=== PATIENT | male | born 1990 | race Caucasian/White ===

== ENCOUNTER 2019-10-01 16:30 | Emergency (ER) | payer OTHER, SELFPAY ==
[~2019-10-01] VITALS: Ht 167.6 cm; Wt 79.8 kg
[2019-10-01 16:35] VITALS: BP_SYST 152
--- NOTE | 2019-10-01 16:40 | NUR ---
Pt on tent at this time
--- NOTE | 2019-10-01 17:00 | NUR ---
Pt brought by mother, A&Ox4, pt presents to ER with R earache and dizziness, pt requesting a covid test, no cough, respirations even and unlabored, cap refill <3.
--- NOTE | 2019-10-01 17:30 | NUR ---
Dr Duarte L assessing patient in the tent.
[2019-10-01 18:05] VITALS: BP_SYST 152
--- NOTE | 2019-10-01 18:05 | NUR ---
Patient given written and verbal discharge instructions and verbalizes understanding. ER MD discussed with patient the results and treatment provided. Patient in stable condition. ID arm band removed. Rx of Meclizine and Ibuprofen given. Patient educated on pain management and to follow up with PMD. Pain Scale 2/10. Opportunity for questions provided and answered. Medication side effect fact sheet provided.
== END 2019-10-01 18:05 | disposition home or self-care (01) ==
LOC: SED 16:30
DX: R42 Dizziness and giddiness (principal); H92.01 Otalgia, right ear; R05 Cough; Z88.2 Allergy status to sulfonamides; Z20.828 Contact with and (suspected) exposure to other viral communicable diseases
CPT/HCPCS: 71045; 99284; U0003